=== PATIENT | male | born 1955 | race Caucasian/White ===

== ENCOUNTER 2020-08-29 01:09 | Outpatient (CLI) | payer BC, SELFPAY ==
[2020-08-29 19:25] LABS: SARS-CoV-2 RNA PCR Negative
== END 2020-08-29 01:10 | disposition home or self-care (01) ==
LOC: ANHCOVIDDT 01:09
PROVIDERS: PCP Internal Medicine; Visit Provider Internal Medicine Gastroenterology
DX: Z01.812 Encounter for preprocedural laboratory examination (principal); Z20.828 Contact with and (suspected) exposure to other viral communicable diseases
CPT/HCPCS: 87635; C9803; U0003

== ENCOUNTER 2020-08-31 01:09 | Day surgery (SDC) | payer BC, SELFPAY ==
[2020-08-28 13:34] VITALS: BMI 27.2
[2020-08-31 06:43] VITALS: BP 132/96; PULSE 95; RESP 18; TEMP 36.4; O2SAT 96; BMI 26.7
--- NOTE | 2020-08-31 07:02 | PM.HPGS ---
History of Present Illness History of Present Illness Consent: Risks, benefits, and alternatives have been discussed and questions answered. Patient agrees to proceed with procedure. Chief complaint: reflux, neoplasm screening Narrative: Amaury Adamson is a 65 year old W male Referred for EGD and colonoscopy. Patient has at least 10 year history of gastroesophageal reflux disease. Occasional heartburn and does have some coughing sometimes awaken in the middle night. He has a rare episode of dysphagia. No nausea vomiting hematemesis. He states there is a family history of reflux. He has never had upper endoscopy before. He is on no medications at this time takes occasional Tums. Patient is undergoing a screening colonoscopy. States he had a colonoscopy over 10 years ago was found have diverticulosis. No family history of colon polyps or colon cancer. [facility] Past Medical History Medical History Allergies Hypertension Surgical History Surgical History (Updated 08/31/20 @ 07:04 by Herve Lacy MD) H/O removal of cyst Benign cyst removed from left arm. [place] teeth extracted Family History Family History Mother Diabetes mellitus Sibling Diabetes mellitus Father Social History Social History Smoking status: Never smoker Alcohol intake: current Drinks per week: 6 Substance use: never Substance use type: does not use Living arrangements: with family Spiritual care concerns: No Meds Home Medications and Allergies Home Medications Medication Instructions Recorded Confirmed Type aspirin 81 mg tablet,delayed 81 mg PO DAILY 04/11/20 08/28/20 History release multivitamin 1 tablet PO DAILY 04/11/20 08/28/20 History omega-3 fatty acids 1,000 mg 1,000 mg PO DAILY 04/11/20 08/28/20 History capsule lisinopril 20 1 tablet PO DAILY #90 tablet 08/08/20 08/28/20 Rx mg-hydrochlorothiazide 12.5 mg tablet Allergies Allergy/AdvReac Type Severity Reaction Status Date / Time SODIUM PENTOTHAL AdvReac Intermediate Other Uncoded 08/31/20 06:41 Vital Signs Vital Signs - 24 hr 08/31/20 06:43 Temperature 36.4 C L Pulse Rate 95 Respiratory Rate 18 Blood Pressure 132/96 H Pulse Oximetry 96 Exam Const: Orientation/consciousness: patient oriented x3 Resp: Auscultation: clear to auscultation bilaterally Cardio: Rate: regular rate Rhythm: regular rhythm Heart sounds: no murmurs GI: GI Palp: Yes Soft to palpation, No Tenderness to palpation present (GI), Yes No hepatosplenomegaly present and No Palpable mass present Auscultation: normal bowel sounds Neuro: General: patient oriented x3 and no focal motor deficits Extrem: General: no pedal edema Assessment and Plan Additional Plan EGD for evaluation of chronic gastroesophageal reflux disease and screening colonoscopy in average risk patient
[2020-08-31] MEDS: LACTATED RINGERS 1,000 ML 150 ML IV CONT (07:04)
--- NOTE | 2020-08-31 07:11 | WPDANESEPPF ---
Anes - Initial Pre Proc Eval Procedure: Operation Date: 08/31/20 07:30 Proposed Procedures p Esophagogastroduodenoscopy & Screening Colonoscopy - Herve Lacy MD Date/Time: 08/31/20 07:11 Surgeon: Herve Lacy MD Pre Op Diagnosis: reflux, neoplasm screening Patient Data Age: 65 Gender: M Height: 5 ft 11 in Weight: 87.1 kg Last Vital Signs Temp 97.5 F L 08/31/20 06:43 Pulse 95 08/31/20 06:43 Resp 18 08/31/20 06:43 BP 132/96 H 08/31/20 06:43 Pulse Ox 96 08/31/20 06:43 Allergies Allergy/AdvReac Type Severity Reaction Status Date / Time SODIUM PENTOTHAL AdvReac Intermediate Other Uncoded 08/31/20 06:41 Home Medications Medication Instructions Recorded Confirmed Type aspirin 81 mg tablet,delayed 81 mg PO DAILY 04/11/20 08/28/20 History release multivitamin 1 tablet PO DAILY 04/11/20 08/28/20 History omega-3 fatty acids 1,000 mg 1,000 mg PO DAILY 04/11/20 08/28/20 History capsule lisinopril 20 1 tablet PO DAILY #90 tablet 08/08/20 08/28/20 Rx mg-hydrochlorothiazide 12.5 mg tablet Patient hx anesthesia problems: none Family hx anesthesia problems: none PMFSH Past Medical History Medical History (Updated 08/31/20 @ 07:11 by Giacomo Prescott MD) Allergies GERD (gastroesophageal reflux disease) Hypertension Surgical History Surgical History (Updated 08/31/20 @ 07:04 by Herve Lacy MD) H/O removal of cyst Benign cyst removed from left arm. [place] teeth extracted Family History Family History Mother Diabetes mellitus Sibling Diabetes mellitus Father Social History Social History Smoking status: Never smoker Alcohol intake: current Drinks per week: 6 Substance use: never Substance use type: does not use Living arrangements: with family Spiritual care concerns: No Anes - Eval Final PreProcedure Day of Procedure 10/01/20 07:11 Patient weight: normal Heart: regular rate and rhythm Lungs: clear to auscultation Airway: Mallampati scale class II Neurological: alert and oriented Last oral intake: >/= 8 hours ASA classification: II Emergent: no Anesthetic plan: proceed Anesthesia type and monitoring: general GIVS and standard monitoring Informed Consent: The patient's anesthetic plan and its attendant risks and benefits were discussed with the patient/family/POA. Questions were solicited and answers provided to the satisfaction of the patient/family/POA.
[2020-08-31] MEDS: BENZOCAINE (*SP) 60 ML SPRAY CAN (HURRICAINE) 1 SPRAY MUCOUS MEM (07:22)
[2020-08-31 08:00] VITALS: BP 132/96; PULSE 85; RESP 19; O2SAT 97
[2020-08-31 08:10] VITALS: BP 105/72; PULSE 78; RESP 24; O2SAT 97
[2020-08-31 08:20] VITALS: BP 115/72; PULSE 85; RESP 16; O2SAT 97
== END 2020-08-31 08:50 | disposition home or self-care (01) ==
PROVIDERS: PCP Internal Medicine; Visit Provider Internal Medicine Gastroenterology
PROC: 0DJ08ZZ Inspection of Upper Intestinal Tract, Via Natural or Artificial Opening Endoscopic (ICD-10-PCS; CPT 43235; principal; 2020-08-31 07:30)
DX: Z12.11 Encounter for screening for malignant neoplasm of colon (principal); D12.0 Benign neoplasm of cecum; K63.5 Polyp of colon; K57.30 Diverticulosis of large intestine without perforation or abscess without bleeding; K64.8 Other hemorrhoids; K21.00 Gastro-esophageal reflux disease with esophagitis, without bleeding; K22.2 Esophageal obstruction; K44.9 Diaphragmatic hernia without obstruction or gangrene; K29.80 Duodenitis without bleeding; I10 Essential (primary) hypertension; Z79.82 Long term (current) use of aspirin
CPT/HCPCS: 45380; 45385; 43239; 87081; 88305; J2704; J7120

== ENCOUNTER 2024-05-28 12:30 | Outpatient (RCR) | payer MEDICARE, SELFPAY ==
--- NOTE | 2024-05-21 09:49 | OTOPEVAL1 ---
Assessment and note entered by YASMINE Hollingsworth/Karo, CHT Evaluation Information Assessment Status Evaluation Diagnosis Trigger finger Subjective Information Patient presents with bilateral flexor tenosynovitis. He reports his left hand is worse than the right. He is right handed. Reports bilateral ring fingers are triggering. He received an injection to the left ring finger on 05/18/24 and reports this has helped. Assessment OT Clinical Summary Patient referred to OT with dx of bilateral hand flexor tenosynovitis. Functional limitations include a decline gross gripping abilities, generalized stiffness, and pain. He presents with notable crepitus and some catching of the flexor tendons III and V on the right hand and IV on the left hand today. Skilled OT indicated for HEP instruction and progression, use of modalities, splinting, manual therapy, and therapeutic exercise to facilitate optimal functional hand use , improved flexibility, and reduced pain with ADLs /work tasks. Plan of Care Interventions Therapeutic Exercise,Manual Therapy,Therapeutic Activities,Hot Pack/Cold Pack,Ultrasound,Paraffin OT Services Indicated Yes Treatment Frequency and 1x/week for 3 visits Duration Patient traveling for work and will be unable to follow up after week of June 03 These treatments will address the objective and functional deficits as defined above. The patient will be advanced safely and appropriately in order for the patient to progress towards his/her prior level of function. Additional exercises will be introduced and as well as a comprehensive home exercise program upon discharge, if needed, ?to ensure carryover of functional gains achieved in the clinic. This treatment plan has been reviewed and agreement upon by the patient.
--- NOTE | 2024-05-21 09:50 | OPREHPOC ---
Outpatient Therapy Plan of Care This is a Multidisciplinary Plan of Care that may contain components documented by all disciplines (PT, OT, and ST.) OT Problem 1 OT Problem #1 Knowledge Deficit OT Goal 1 Goal 1. Patient to be independent with instructed materials. Target Visit 3 OT Problem 2 OT Problem #2 Impaired Flexibility OT Goal 1 Goal 1. Patient to be able to complete tendon glide series without catching of the flexor tendons. Target Visit 3 OT Problem 3 OT Problem #3 Impaired Strength OT Goal 1 Goal 1. Patient to be able to complete research/program director/pinch strengthening with at least yellow theraputty x5 minutes without pain. Target Visit 3
--- NOTE | 2024-06-02 10:42 | OTOPDC ---
Assessment and note entered by Elmo Medina, YASMINE/Karo, CHT Discharge Notification 06/02/24 OT Clinical Summary Patient evaluated 05/21/24 for bilateral flexor tenosynovitis. Splints were provided the first week. He followed up a week later with good progress made, no longer catching with active flexion. Upgraded his HEP. This week he did not show up to his appointment and he is traveling for work starting tomorrow x1 month. Followed up with patient via phone call this AM He states that for the past few days his hands have felt normal . He has been doing very well and having no issues. Discharging OT with patient independent with all materials. Rehab potential excellent as patient demonstrates excellent understanding of all materials.
== END 2024-06-02 17:01 | disposition home or self-care (01) ==
LOC: ANHOT 12:30
PROVIDERS: PCP Nurse Practitioner; Visit Provider Physician Assistant Surgical
DX: M65.30 Trigger finger, unspecified finger (principal)
CPT/HCPCS: 97110; 97165; L3933

== ENCOUNTER 2024-10-27 08:22 | Outpatient (CLI) | payer MEDICARE, SELFPAY ==
--- NOTE | ~2024-10-27 | XR_ITS ---
XR chest 2V Ordering provider: Xochitl Gonzales NP History: 69 years Male with . R05.9 - Cough, unspecified . Comparison: None. FINDINGS: MEDIASTINUM: The cardiac silhouette is not enlarged. LUNGS: No infiltrates, effusions or pneumothorax. OTHER: No free air under the diaphragm. IMPRESSION: No acute cardiopulmonary pathology. Reviewed, dictated and finalized at location A. 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
== END 2024-10-27 08:23 | disposition home or self-care (01) ==
LOC: GOSHIMG 08:23
PROVIDERS: PCP Internal Medicine; Visit Provider Nurse Practitioner
DX: R05.9 Cough, unspecified (principal)
CPT/HCPCS: 71046